=== PATIENT | male | born 1965 | race Caucasian/White ===

== ENCOUNTER 2018-07-12 11:00 | Outpatient (RCR) | payer OTHER ==
[~2018-07-12 11:00] MED LIST: ATORVASTATIN CA40 MG PO; BAYER ASA325 MG OR; CARVEDILOL3.125 MG PO; CEPHALEXIN500 MG OR; CITALOPRAM20 MG OR; DIGOXIN0.25 MG OR; ESCITALOPRAM OX20 MG PO; HYDROCHLOROT12.5 M1 PO; METOPROLOL25 M1 OR; MULTIVITAMI1 OR; NAPROSYN500 MG PO; NIASPAN500 MG OR; NITROSTAT0.4 MG SL; PLAVIX75 MG OR; RANITIDINE150 MG OR; SOTALOL HCL80 M1 PO; TRAMADOL HYDROC50 MG PO; ULTRAM50 MG OR; XARELTO20 MG PO
== END 2018-07-12 12:00 | disposition home or self-care (01) ==
LOC: PT 11:00
DX: M54.30 Sciatica, unspecified side (principal)